=== PATIENT | male | born 1995 | race Two or more races ===

== ENCOUNTER 2025-05-12 19:11 | Emergency (ER) | payer OTHER ==
[~2025-05-12] VITALS: Ht 175.3 cm; Wt 77.0 kg
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
[2025-05-12 19:48] VITALS: BP 120/79; PULSE 89; RESP 14; TEMP 98.3; O2SAT 95
== END 2025-05-12 19:51 ==
LOC: ER 19:11
DX: R68.89 Other general symptoms and signs (principal); V89.2XXA Person injured in unspecified motor-vehicle accident, traffic, initial encounter; Y93.89 Activity, other specified; Y92.488 Other paved roadways as the place of occurrence of the external cause; Y99.8 Other external cause status